=== PATIENT | male | born 1985 | race Caucasian/White ===

== ENCOUNTER 2017-04-30 12:30 | Emergency (ER) | payer MEDICAID ==
[~2017-04-30] VITALS: Ht 142.2 cm; Wt 85.7 kg
[2017-04-30 12:34] VITALS: BP 130/80
== END 2017-04-30 14:13 | disposition home or self-care (01) ==
LOC: ED 14:07
DX: S99.922A Unspecified injury of left foot, initial encounter (principal); G89.29 Other chronic pain; E78.5 Hyperlipidemia, unspecified; X58.XXXA Exposure to other specified factors, initial encounter; Y93.89 Activity, other specified; Y92.009 Unspecified place in unspecified non-institutional (private) residence as the place of occurrence of the external cause; Y99.8 Other external cause status
CPT/HCPCS: 99284